=== PATIENT | male | born 1975 | race Caucasian/White ===

== ENCOUNTER → 2020-09-25 | Outpatient (REF) | payer BC | LOC: M LAB REF 16:13 | PROVIDERS: ATTEND Physician Assistant Medical | DX: M10.9 Gout, unspecified (principal) ==

== ENCOUNTER 2021-09-05 17:02 | Emergency (ER) | payer BC ==
[~2021-09-05] VITALS: Ht 177.8 cm; Wt 127.3 kg
[2021-09-05] MEDS ORDERED: INDO50CA91 (17:14)
[2021-09-05] MEDS ORDERED: ceFAZolin SOD 2 GM in IV 1 EA IV ONE (18:00)
[2021-09-05] MEDS ORDERED: BOOSTRIX/ADACEL VACCINE (DIPHTH/PERTUSS/ACELL/TETANUS) 0.5ML SYR IM.IMMUN ONE (18:00)
[2021-09-05] MEDS ORDERED: fentaNYL 100 MCG/2 ML INJECTION IV ONE (18:00)
[2021-09-05] MEDS ORDERED: NS 1,000 ML IV ONE (18:00)
[2021-09-05 18:23] LABS: BASO # 0.1 10^3/uL (0.0-0.2); EOS # 0.1 10^3/uL (0.0-0.5); EOS % 0.6 % (0.0-3.0); HEMATOCRIT 50.2 % (42.0-52.0); HEMOGLOBIN 16.3 g/dl (13.5-17.5); LYMPH # 4.4 10^3/uL (1.5-5.0); LYMPH % 36.3 % (24.0-44.0); MEAN CORPUSCULAR HEMOGLOBIN 29.2 pg (27.0-33.0); MEAN CORPUSCULAR HGB CONC 32.5 g/dl (32.0-36.5); MONO # 0.7 10^3/uL (0.0-0.8); MONO % 6.1 % (2.0-8.0); NEUTROPHILS # 6.2 10^3/uL (1.5-8.5); NEUTROPHILS % 51.3 % (36.0-66.0); PLATELET COUNT, AUTOMATED 208 10^3/uL (150-450); RED BLOOD COUNT 5.58 10^6/uL (4.30-6.10); WHITE BLOOD COUNT 12.1 10^3/uL (4.0-10.0)
[2021-09-05 19:53] VITALS: BP 141/75
== END 2021-09-05 19:54 | disposition short-term general hospital (02) ==
LOC: M ED 17:02
DX: S62.327B Displaced fracture of shaft of fifth metacarpal bone, left hand, initial encounter for open fracture (principal); S62.321B Displaced fracture of shaft of second metacarpal bone, left hand, initial encounter for open fracture; W23.1XXA Caught, crushed, jammed, or pinched between stationary objects, initial encounter; Y99.0 Civilian activity done for income or pay; Z88.0 Allergy status to penicillin
CPT/HCPCS: 36415; 73130; 80047; 85025; 86850; 86900; 86901; 87426; 90471; 90715; 96365; 96375; 99285; J0690; J3010